=== PATIENT | female | born 1950 | race Caucasian/White ===

== ENCOUNTER 2017-02-19 00:22 | Inpatient (IN) | payer OTHER, MEDICAID ==
[~2017-02-19] VITALS: Ht 165.1 cm; Wt 118.5 kg
[~2017-02-19 00:22] MED LIST: ACIPHEX; ASPIRIN; AZO; ENALAPRIL; FUROPOW8; GABA1POW27; LIPITOR; METFORMIN; METHOCARBAMOL; METOPROLO; NITROSTAT; NORCO; PLAVIX; TIZANIDINE; TRAMADOL
[2017-02-19 01:30] LABS: Basophils # (auto) 0 uL; Basophils % (auto) 0.2 % (0.0-2.0); CONDITION Y; Eosinophils # (auto) 0.1 uL; Eosinophils % (auto) 1.2 % (0.0-7.0); Hematocrit 30.1 % (36.0-46.0); Hemoglobin 9.6 g/dL (12.2-16.2); Lymphocytes # (auto) 0.6 uL; Lymphocytes % (auto) 8.1 % (10.0-50.0); Mean Corpuscular Hemoglobin 28.2 pg (28.0-32.0); Mean Corpuscular Hgb Conc. 31.9 g/dL (32.0-36.0); Mean Corpuscular Volume 88.6 fL (80.0-100.0); Neutrophils % (auto) 77.5 % (37.0-80.0); Platelet Count (auto) 212 10^3/uL (140-450); Red Cell Distribution Width 17.8 % (11.6-16.0); SUSPECT SEE PRINTOUT; White Blood Cell 7.7 10^3/uL (4.4-10.8)
[2017-02-19] MEDS ORDERED: CLINDAMYCIN 900MG IV 50 ML IV ONE (01:45)
[2017-02-19] MEDS ORDERED: PIPERACILLIN-TAZO 4.5GM 100 ML IV ONE (01:45)
[2017-02-19] MEDS ORDERED: SODIUM CHLORIDE 0.9% 1,000 ML IV ONE (01:45)
[2017-02-19 02:01] LABS: Albumin 2.8 g/dL (3.4-5.0); Anion Gap 6 (5-15); Aspartate Aminotransferase 28 U/L (15-37); BUN/Creatinine Ratio 28.4; Blood Urea Nitrogen 66 mg/dL (7-18); Calcium 8.5 mg/dL (8.5-10.1); Carbon Dioxide 27 mmol/L (21-32); Chloride 111 mmol/L (98-107); GFR African American 27 mL/min; GFR Non-African American 22 mL/min; Glucose 155 mg/dL (74-106); Magnesium 2.3 mg/dL (1.6-2.6); Potassium 5.2 mmol/L (3.5-5.1); Sodium 144 mmol/L (136-145)
[2017-02-19 02:02] LABS: INR 0.96 (0.9-1.15); Partial Thromboplastin Time 29.7 sec (22.64-33.71); Prothrombin Time 10.5 sec (9.37-12.3)
[2017-02-19 02:06] LABS: Alkaline Phosphatase 489 U/L (45-117); Bilirubin, Total 0.7 mg/dL (0.2-1.0); Total Protein 7.3 g/dL (6.4-8.2)
[2017-02-19 02:09] LABS: Urine Bilirubin Negative (Negative); Urine Blood Negative /uL (Negative); Urine Color Yellow (Yellow); Urine Glucose Normal (Normal); Urine Ketone Negative (Negative); Urine Nitrite Negative (Negative); Urine RBC 1 /hpf (0 - 4); Urine Squamous Epithelial Cell FEW /hpf (<5); Urine Urobilinogen Normal (Negative)
[2017-02-19] MEDS ORDERED: NITROGLYCERIN 0.4 MG SL TAB SL PRN (04:30)
[2017-02-19] MEDS ORDERED: cefTRIAXone 1GM/50ML D5W 50 ML IV ONE (04:30)
[2017-02-19] MEDS ORDERED: MORPHINE SULF INJ 2 MG/ML SYRINGE 1ML IV PRN ×2 (04:30→04:45)
[2017-02-19] MEDS ORDERED: FUROSEMIDE 40 MG/4 ML VIAL IV ONE (04:45)
[2017-02-19] MEDS ORDERED: HYDROcodone-ACET 5/325MG TAB PO PRN (04:45)
[2017-02-19] MEDS ORDERED: ONDANSETRON HCL 4 MG/2 ML VIAL IV PRN (04:45)
[2017-02-19] MEDS ORDERED: DEXTROSE (50%) 50ML SYRG IV PRN (04:45)
[2017-02-19] MEDS ORDERED: hydrALAZINE HCL 25 MG TAB PO PRN (04:45)
[2017-02-19] MEDS ORDERED: ACETAMINOPHEN 500 MG TAB PO PRN (04:45)
[2017-02-19] MEDS ORDERED: LACTULOSE 20Gm/30ML SOLN PR ONE (06:30)
[2017-02-19] MEDS ORDERED: LACTULOSE 20Gm/30ML SOLN PO ONE (06:45)
[2017-02-19] MEDS ORDERED: glipiZIDE 5 MG TAB PO SCH (07:00)
[2017-02-19 07:22] LABS: Temperature: 22.9 C (20.0-25.0)
[2017-02-19] MEDS: ACCU-CHEK COMFORT CURVE STRIP VI SCH ×4 (08:13→22:08)
[2017-02-19] MEDS: InsuLIN REG 1unit/0.01ml Soln (100units/ml) SC SCH ×4 (08:13→22:00)
[2017-02-19 09:55] VITALS: BP 187/78
[2017-02-19] MEDS ORDERED: ISOSORBIDE MONONITRATE 60 MG TAB PO SCH (10:00)
[2017-02-19] MEDS: LACTULOSE 20Gm/30ML SOLN PO SCH (10:00)
[2017-02-19] MEDS ORDERED: METOPROLOL SUCCINATE XL 50 MG TAB PO SCH (10:00)
[2017-02-19 13:00] VITALS: BP 202/74
[2017-02-19] MEDS ORDERED: PANTOPRAZOLE 40 MG/10 ML VIAL IV ONE ×2 (15:00→19:45)
[2017-02-19] MEDS ORDERED: cloNIDine 0.1 mg/24hr 7 DAY PATCH TD ONE (15:00)
[2017-02-19 17:00] VITALS: BP 187/82
[2017-02-19 18:33] LABS: Hematocrit 30.9 % (36.0-46.0); Hemoglobin 10.1 g/dL (12.2-16.2)
[2017-02-19 20:00] VITALS: BP 153/66
[2017-02-19 21:30] VITALS: BP 153/66
[2017-02-19] MEDS: PANTOPRAZOLE 40 MG/10 ML VIAL IV SCH (22:08)
[2017-02-20] VITALS (23 sets, daily range): BP systolic 147–174; BP diastolic 63–120
[2017-02-20 00:50] LABS: Hemoglobin 9.7 g/dL (12.2-16.2)
[2017-02-20] MEDS ORDERED: RANO500T2 PO (00:51)
[2017-02-20] MEDS ORDERED: ISOS30TA4 PO (00:51)
[2017-02-20] MEDS ORDERED: INSUINJ37 SUBCUT (00:51)
[2017-02-20] MEDS ORDERED: FURO40TA4 PO (00:51)
[2017-02-20] MEDS ORDERED: METO-158 PO (00:51)
[2017-02-20] MEDS ORDERED: FLUT100I IN (00:51)
[2017-02-20] MEDS ORDERED: FEBU40TA PO (00:51)
[2017-02-20] MEDS ORDERED: HYDR-4663 PO (00:51)
[2017-02-20] MEDS ORDERED: GLIP-115 PO (00:51)
[2017-02-20] MEDS ORDERED: HYDR-2652 PO (00:51)
[2017-02-20] MEDS ORDERED: PREG50CA PO (00:51)
[2017-02-20] MEDS ORDERED: ATOR40TA52 PO (00:51)
[2017-02-20] MEDS: InsuLIN REG 1unit/0.01ml Soln (100units/ml) SC SCH ×4 (05:29→22:26)
[2017-02-20] MEDS: hydrALAZINE HCL 20 MG/ML VL IV PRN ×3 (05:30→20:20)
[2017-02-20] MEDS: ACCU-CHEK COMFORT CURVE STRIP VI SCH ×4 (05:30→22:10)
[2017-02-20 05:52] LABS: Albumin 2.9 g/dL (3.4-5.0); BUN/Creatinine Ratio 30.4; Bilirubin, Total 0.8 mg/dL (0.2-1.0); Calcium 8.9 mg/dL (8.5-10.1); Potassium 4.6 mmol/L (3.5-5.1); Total Protein 7.2 g/dL (6.4-8.2)
[2017-02-20 05:56] LABS: B-Type Natriuretic Peptide 1421.19 pg/mL (0-100)
[2017-02-20 05:58] LABS: Temperature: 22.9 C (20.0-25.0)
[2017-02-20] MEDS ORDERED: FUROSEMIDE 40 MG/4 ML VIAL IV ONE (08:30)
[2017-02-20] MEDS ORDERED: cefTRIAXone 1GM/50ML D5W 50 ML IV SCH (09:00)
[2017-02-20 09:35] LABS: Temperature: 22.7 C (20.0-25.0)
[2017-02-20] MEDS ORDERED: PANTOPRAZOLE 40 MG/10 ML VIAL IV SCH (10:00)
[2017-02-20] MEDS: LACTULOSE 20Gm/30ML SOLN PO SCH (10:12)
[2017-02-20] MEDS: PANTOPRAZOLE 40 MG/10 ML VIAL IV SCH (10:12)
[2017-02-20 11:47] LABS: Allen Test Yes; Base Excess -3.1 mmol/L (-2.0-2.0); Blood 02Sat 94.8 % (96-100); Blood COHb 0.4 % (0.5-1.5); Blood MetHb 0.2 % (0.0-1.5); HCO3 22.3 mmol/L (22-26.0); HHb 5.2 % (0.0-5.0); MODE NASAL CANNULA; O2Hb 94.2 % (94.0-97.0); PO2 83.8 mmHg (80.0-100.0); PO2(T) 83.8 mmHg (80.0-100.0); Sample Type Arterial; pH 7.353 (7.350-7.450)
[2017-02-20] MEDS: PANTOPRAZOLE 80 MG in SODIUM CHL 0.9% 60 ML IV SCH ×2 (13:18→20:01)
[2017-02-20] MEDS ORDERED: SOD CHL 0.45% 1,000 ML IV SCH (15:00)
== END 2017-02-20 23:55 | disposition short-term general hospital (02) | DRG 377 ==
LOC: ER 00:22 → EDBD 00:22 → TELE 00:23 → TELE-WESTW 10:15 → ICU WEST 02-20 10:45
PROVIDERS: ADMIT Nurse Practitioner Family; ATTEND Internal Medicine Geriatric Medicine
DX: K92.2 Gastrointestinal hemorrhage, unspecified (principal); I50.33 Acute on chronic diastolic (congestive) heart failure; G92 Toxic encephalopathy; I13.0 Hypertensive heart and chronic kidney disease with heart failure and stage 1 through stage 4 chronic kidney disease, or unspecified chronic kidney disease; N17.9 Acute kidney failure, unspecified; E44.0 Moderate protein-calorie malnutrition; N18.4 Chronic kidney disease, stage 4 (severe); N39.0 Urinary tract infection, site not specified; L03.119 Cellulitis of unspecified part of limb; Z68.41 Body mass index [BMI] 40.0-44.9, adult; E87.5 Hyperkalemia; J44.9 Chronic obstructive pulmonary disease, unspecified; I25.10 Atherosclerotic heart disease of native coronary artery without angina pectoris; I25.2 Old myocardial infarction; Z88.8 Allergy status to other drugs, medicaments and biological substances; E11.22 Type 2 diabetes mellitus with diabetic chronic kidney disease; Z98.61 Coronary angioplasty status; Z82.49 Family history of ischemic heart disease and other diseases of the circulatory system; Z83.3 Family history of diabetes mellitus; G40.909 Epilepsy, unspecified, not intractable, without status epilepticus; E11.40 Type 2 diabetes mellitus with diabetic neuropathy, unspecified; R26.9 Unspecified abnormalities of gait and mobility; Z87.442 Personal history of urinary calculi; Z87.891 Personal history of nicotine dependence; E87.6 Hypokalemia; E66.01 Morbid (severe) obesity due to excess calories; E86.0 Dehydration; D64.9 Anemia, unspecified
CPT/HCPCS: 36415; 36600; 70450; 71010; 76775; 80053; 80307; 80320; 81001; 82140; 82270; 82607; 82746; 82805; 82962; 83036; 83605; 83735; 83880; 84439; 84443; 84481; 84484; 85014; 85018; 85025; 85379; 85610; 85730; 86141; 87040; 87086; 93005; 93306; 93886; 93970; 94761; 96365; 96367; 96368; 96375; C9113; J0696; J1815; J2543; J3490